=== PATIENT | male | born 1965 | race Caucasian/White ===

== ENCOUNTER 2017-11-03 17:54 | Inpatient (IN) | payer OTHER, MEDICAID ==
[~2017-11-03] VITALS: Ht 182.9 cm; Wt 134.7 kg
--- NOTE | ~2017-11-03 | 2DMMODE ---
[facility] [address] [place] [address] 2 D/M-MODE ECHOCARDIOGRAM Name: JOSSIE PARKS Room #: 207-P [facility] IN M.R.#: [id number] Admission: 11/03/17 Attend Phys: Gareth Hernandez Discharge: Date of : 61 Date of Service: 11/06/17 1553 Report #: [id number] THIS REPORT FOR: //name// APPROVED REPORT Study performed: 11/06/2017 13:35:05 EXAM: Comprehensive 2D, Doppler, and color-flow Echocardiogram Patient Location: Bedside Room #: 207 Status: routine BSA: 2.53 HR: 127 bpm BP: 124/98 mmHg Rhythm: Atrial Fibrillation Other Information Study Quality: Fair Technically limited study due to morbid obesity, no mobility. Echo Enhancing Agent Indication: Endocardial border delineation Agent(s) / Amount(s) Used: Optison 7 cc 2D Dimensions RVDd: 35.04 mm LVEF(%): 28.41 (>50%) IVSd: 13.24 (7-11mm) LVOT Diam: 24.10 (18-24mm) LVDd: 59.82 mm PWd: 13.07 (7-11mm) Ascending Ao: 39.62 (22-36mm) LVDs: 51.73 (25-40mm) Aortic Root: 40.45 mm Villar's LVEF: 28.41 % Volumes Left Atrial Volume (Systole) Single Plane 4CH: 83.79 mL Single Plane 2CH: 82.56 mL LA ESV Index: 35.00 mL/m2 Aortic Valve AoV Peak Austin.: 1.21 m/s AO Peak Gr.: 8.45 mmHg LVOT Max P.66 mmHg LVOT Max V: 0.63 m/s JACKELIN Vmax: 2.37 cm2 Mitral Valve [facility] [place] [address] 2 D/M-MODE ECHOCARDIOGRAM Name: JOSSIE PARKS Room #: 207-P [facility] IN M.R.#: [id number] Admission: 11/03/17 Attend Phys: Gareth Hernandez Discharge: Date of : 61 Date of Service: 11/06/17 1553 Report #: [id number] MV Decel. Time: 150.70 ms MV E Max Austin.: 0.56 m/s Pulmonary Valve PV Peak Austin.: 1.14 m/s PV Peak Gr.: 6.06 mmHg Tricuspid Valve TR Peak Austin.: 1.91 m/s TR Peak Gr.: 14.66 mmHg Left Ventricle Left ventricle is dilated. Regional wall motion abnormalities cannot be excluded. Mild concentric left ventricular hypertrophy. Left ventricular systolic function is moderately decreased. LVEF 35-40%. This study is not technically sufficient to allow evaluation of the LV diastolic function due to atrial fibrillation. Right Ventricle Right ventricle is not well visualized but appears normal in size. Atria Left atrium is dilated. Aortic Valve Aortic valve is grossly normal in structure. No aortic regurgitation. There is no aortic valvular stenosis. Mitral Valve The mitral valve is normal in structure. Trace mitral regurgitation. Tricuspid Valve The tricuspid valve is normal in structure. Trace tricuspid regurgitation. Estimated PAP is 15mmHg plus the right atrial pressure. Pulmonic Valve Pulmonic valve is not well visualized. Great Vessels Aortic root is borderline dilated. The ascending aorta is mildly dilated. IVC is not well visualized. Pericardium There is no pericardial effusion. [facility] [place] [address] 2 D/M-MODE ECHOCARDIOGRAM Name: JOSSIE PARKS Room #: 207-P [facility] IN M.R.#: [id number] Admission: 11/03/17 Attend Phys: Gareth Hernandez Discharge: Date of : 61 Date of Service: 11/06/171552 Report #: [id number] <Conclusion> Technically very limited study Left ventricular systolic function is moderately decreased. LVEF 35-40%. Left atrium is dilated. Aortic valve is grossly normal in structure. No aortic valvular stenosis or insufficiency. The mitral valve is normal in structure. Trace mitral regurgitation. Pulmonary artery pressure could not be reliably ascertained There is no pericardial effusion. <ELECTRONICALLY SIGNED> By: Marciano Brooke MD, [facility] 11/06/17 155 52 155 Mraciano Brooke MD, FACC /INF
--- NOTE | ~2017-11-03 | EKG ---
[address] [address] ELECTROCARDIOGRAM REPORT Name: JOSSIE PARKS Room #: 207-P ADM IN M.R.#: [id number] Admission: 11/03/17 Attend Phys: Gareth Frances Discharge: Date of : 61 Report #: [id number] THIS REPORT FOR: //name// [facility] Test Date: 2017-11-06 Test Time: 12:20:19 Pat Name: JOSSIE PARKS Department: Room: 207 P Gender: M Aromatherapist: Bethanie FIGUEROA : 1965 Requested By: Corey Powell Order Number: [id number] MD: Corey Powell Measurements Intervals [place] Rate: 118 P: IN: QRS: 37 QRSD: 96 T: 73 QT: 356 QTc: 499 Interpretive Statements Atrial fibrillation Anteroseptal infarct, age indeterminate Compared to ECG 11/05/2017 15:27:32 No significant changes Electronically Signed On 11-06-2017 13:18:16 GEOGRAPHY INSTRUCTOR by Corey Powell [email or web address] <ELECTRONICALLY SIGNED> By: Corey Powell MD 11/06/17 1318 1220 1220 Corey Powell MD /KOBE
--- NOTE | ~2017-11-03 | EKG ---
[address] [address] ELECTROCARDIOGRAM REPORT Name: JOSSIE PARKS Room #: 429-P ADM IN M.R.#: [id number] Admission: 11/03/17 Attend Phys: Gareth Frances Discharge: Date of : 61 Report #: [id number] THIS REPORT FOR: //name// [facility] Test Date: 2017-11-03 Test Time: 18:06:56 Pat Name: JOSSIE PARKS Department: Room: 429 Gender: M Branch Banker: DONNA : 1965 Requested By: Roxie Lane Order Number: [id number] MD: Corey Powell Measurements Intervals [place] Rate: 134 P: 38 AK: 122 QRS: -6 QRSD: 88 T: QT: 311 QTc: 465 Interpretive Statements Sinus tachycardia Nonspecific T abnormalities, lateral leads Compared to ECG 10/27/2016 13:59:50 Sinus rhythm no longer present Intraventricular conduction delay no longer present Myocardial infarct finding no longer present Possible ischemia no longer present T-wave abnormality still present Electronically Signed On 11-04-2017 8:27:29 ALCOHOLISM WORKER by Corey Powell [email or web address] <ELECTRONICALLY SIGNED> By: Corey Powell MD 11/04/17 0827 180 180 Corey Powell MD /EPI
--- NOTE | ~2017-11-03 | EKG ---
[address] [address] ELECTROCARDIOGRAM REPORT Name: JOSSIE PARKS Room #: 207-P ADM IN M.R.#: [id number] Admission: 11/03/17 Attend Phys: Gareth Frances Discharge: Date of : 61 Report #: [id number] THIS REPORT FOR: //name// [facility] Test Date: 2017-11-08 Test Time: 11:25:11 Pat Name: JOSSIE PARKS Department: Room: 207 P Gender: M Staple Laster: Bethanie FIGUEROA : 1965 Requested By: Corey Powell Order Number: [id number] MD: Corey Powell Measurements Intervals [place] Rate: 125 P: MA: QRS: -9 QRSD: 100 T: QT: 345 QTc: 498 Interpretive Statements Atrial fibrillation Nonspecific T abnormalities, lateral leads Compared to ECG 11/06/2017 12:20:19 T-wave abnormality now present Myocardial infarct finding no longer present Electronically Signed On 11-08-2017 11:42:54 SUPPLY CHAIN PROCUREMENT MANAGER by Corey Powell [email or web address] <ELECTRONICALLY SIGNED> By: Corey Powell MD 11/08/17 1142 1125 1125 Corey Powell MD /KOBE
--- NOTE | ~2017-11-03 | EKG ---
[address] [address] ELECTROCARDIOGRAM REPORT Name: JOSSIE PARKS Room #: 207-P ADM IN M.R.#: [id number] Admission: 11/03/17 Attend Phys: Gareth Frances Discharge: Date of : 61 Report #: [id number] THIS REPORT FOR: //name// [facility] Test Date: 2017-11-05 Test Time: 15:27:32 Pat Name: JOSSIE PARKS Department: Room: 207 Gender: M [employer] District Supervisor: savannah : 1965 Requested By: Corey Powell Order Number: [id number] MD: Corey Powell Measurements Intervals [place] Rate: 157 P: [place]: QRS: -4 QRSD: 92 T: 49 QT: 302 QTc: 489 Interpretive Statements Atrial fibrillation Anterior infarct, old Compared to ECG 11/03/2017 18:06:56 Myocardial infarct finding now present Sinus tachycardia no longer present T-wave abnormality no longer present Electronically Signed On 11-05-2017 15:59:18 LAWN MOWER OPERATOR by Corey Powell [email or web address] <ELECTRONICALLY SIGNED> By: Corey Powell MD 11/05/17 1559 1527 1527 Corey Powell MD /KOBE
--- NOTE | ~2017-11-03 | HC ---
[facility] [place] [address] CONSULTATION Name: JOSSIE PARKS Room #: 207-P [facility] IN M.R.#: [id number] Admission: 11/03/17 Attend Phys: Gareth Frances Discharge: Date of : 61 Report #: [id number] THIS REPORT FOR: //name// CC: Billy Frances REASON FOR CONSULTATION: New onset AFib. HISTORY OF PRESENT ILLNESS: The patient is a 52-year-old male admitted recently with increased fatigue, weakness and low oxygen saturations. He has a history of hypertension, diabetes, prior CVA with left-sided hemiparesis, bipolar disorder, hyperlipidemia and prior alcohol abuse. He resides at the [facility] due to his multiple health issues. Today at around 1 p.m., he went into atrial fibrillation with rapid ventricular response with rates in the 170s. REVIEW OF SYSTEMS: Unable to obtain due to altered mental status and decreased mentation, which is probably a chronic issue. He does have some family members in the room with him. PAST MEDICAL HISTORY: As above. SOCIAL HISTORY: Lives in a group home. FAMILY HISTORY: Noncontributory. ALLERGIES: INCLUDE CIPRO. MEDICATIONS: Include vancomycin, Tamiflu, insulin, gabapentin, Lovenox, atorvastatin, Coreg 12.5 b.i.d., levofloxacin, insulin, sennosides, multivitamin, gabapentin, folic acid, Plavix, citalopram, insulin, Depakote p.o. q. 8, oxycodone, Zofran. PHYSICAL EXAMINATION: VITAL SIGNS: Temperature is 37.2, pulse 102, respiration 20, blood pressure 133/93, sats 95%. GENERAL: He is in no acute distress. HEENT: Oropharynx is clear. NECK: Supple, with no thyromegaly. HEART: Tachycardic. No murmurs are noted. He does not have elevated jugular venous pressures. LUNGS: Clear to auscultation bilaterally. ABDOMEN: Soft, nontender, nondistended, no hepatosplenomegaly. EXTREMITIES: There is no clubbing, cyanosis or edema. NEUROLOGIC: Cranial nerves 2-12 are grossly intact. LABORATORY DATA: White count 15, hemoglobin 12, platelets 163. Coags: [address] [address] CONSULTATION Name: KASEYJOSSIE Dora Room #: 207-P [facility] IN M.R.#: [id number] Admission: 11/03/17 Attend Phys: Gareth Frances Discharge: Date of : 61 Report #: [id number] 1.2. Chemistry: Sodium 146, potassium 3.9, chloride 111, bicarbonate 28, BUN 18, creatinine 0.8. Troponin is pending. DIAGNSOSTIC STUDIES: His 12-lead EKG earlier in the hospitalization on the showed what appears to be sinus tachycardia at 134 beats per minute. His telemetry shows that he went into atrial fibrillation at around [address] of the head shows some old prior strokes. Chest x-ray is poor quality, so unclear if there is any infiltrates here. ASSESSMENT: 1. Atrial fibrillation with rapid ventricular response. 2. Hypertension. 3. Diabetes. 4. Prior cerebrovascular accident. 5. Bipolar. 6. Hyperlipidemia. 7. Prior alcohol abuse. PLAN: In summary, the patient is a 52-year-old with new onset AFib. We will transfer to CCU and start on IV amiodarone and give IV digoxin as well for rate control. We can continue with his carvedilol. We will obtain an echo in the morning. <ELECTRONICALLY SIGNED> By: Corey Powell MD 11/06/17 1307 1527 0206 Corey Powell MD /nt
--- NOTE | ~2017-11-03 | HC ---
[facility] [place] [address] CONSULTATION Name: KASEYNATO Dora Room #: 429-P [facility] IN M.R.#: [id number] Admission: 11/03/17 Attend Phys: Gareth Frances Discharge: Date of : 61 Report #: [id number] THIS REPORT FOR: //name// CC: Billy Frances DATE OF SERVICE: 11/04/2017 CONSULTATION: Infectious Diseases. HISTORY OF PRESENT ILLNESS: Mr Nato Junior is a 52-year-old white male admitted to the hospital on 11/03 with an influenza-like illness, associated with right-sided weakness and hyperglycemia. The patient had been treated for influenza-like illness at his shelter with azithromycin for unknown number of days. Ambulance was called, when he was noted to have new right-sided weakness. In the ambulance, he had an oxygen saturation of 80%. When he reached the ER, he was noted to have a fever of 101.2 axillary and glucose of 443. In this setting the patient was admitted to the hospital. Infectious Disease consultation was requested. PAST MEDICAL HISTORY: Significant for diabetes with hypertension, stroke which results in patient requiring [facility] care. He has a left hemiparesis and expressive aphasia. He has a history of bipolar illness, alcohol overuse. ALLERGIES: The chart notes ALLERGY TO CIPRO, although he is tolerating Levaquin so far with no adverse effects. MEDICATION RECONCILIATION: Current medications include insulin, gabapentin, atorvastatin, enoxaparin, carvedilol, levofloxacin, folic acid, sennosides, citalopram, clopidogrel, divalproex, oxycodone p.r.n., glucagon p.r.n. glucose tabs p.r.n., Tylenol p.r.n., Zofran p.r.n., vancomycin 1 dose. FAMILY HISTORY: Noncontributory. SOCIAL HISTORY: According to the chart, patient is . In the facility, he has no exposure to alcohol or drugs. I believe he was a heavy smoker in the past. REVIEW OF SYSTEMS: Limited as the patient has expressive aphasia. However, he will answer yes, no on occasion. He describes some abdominal discomfort. He denies having respiratory symptoms. I could not appreciate whether he is able to complain of any new neurological complaints. PHYSICAL EXAMINATION: GENERAL: The patient appears older than his stated age, disheveled, but comfortable, not in any distress. [address] [address] CONSULTATION Name: NATO PARKS Dora Room #: 429-P [facility] IN M.R.#: [id number] Admission: 11/03/17 Attend Phys: Gareth Frances Discharge: Date of : 61 Report #: [id number] VITAL SIGNS: Showed temperature was 101.2 axillary in the ER, but it is only 100.5 today and often was measured at normal. SKIN: Sallow without rash, lesion, wounds nor exanthem. ENT: Negative. HEART: Sounds normal. LUNGS: Clear. ABDOMEN: Belly obese, soft, not tender. Bowel sounds present. EXTREMITIES: The patient is weak all around, his left side appears to be almost hemiplegic. He has a weak grasp on the right. He does follow commands and does attempt to answer some questions. LABORATORY DATA: White count is 18.4; hemoglobin 12.8; platelet 192,000. Electrolytes, BUN and creatinine are normal, glucose is 374. TSH is normal. Lactate is normal. Liver function tests are slightly elevated and better than they were yesterday. The influenza antigen is negative for type A and type B, blood cultures x 2 are negative. The urinalysis shows no white cells. Chest x-ray is clear. CT scan shows old changes, but no acute infarcts nor infection. ASSESSMENT AND PLAN: In summary, a patient with a influenza-like illness with new neurological symptoms, hypoxia, hyperglycemia, and fever with leukocytosis. Levaquin would offer broad-spectrum coverage and is reasonable. I think I would like to add Tamiflu in case this is influenza. We can use a respiratory viral panel, which may be more sensitive than the influenza antigen panel. I want to do serial studies of his CBC, the chest x-ray and his glucose. I would anticipate these will all normalize with time and therapy. I appreciate the opportunity of input in the care of the patient. Thank you for requesting infectious disease consultation. <ELECTRONICALLY SIGNED> By: Kunal Castro MD 11/05/17 1345 1759 0502 Kunal Castro MD /nt
[~2017-11-03 17:54] MED LIST: ASPIR 8181 MG PO; BIOFREEZE118 ML TP; COREG6.25 MG PO; DEPAKOTE 250MG250 M1 PO; DEPAKOTE ER500 MG PO; FOLIC ACID1 MG PO; GABAPENTIN 100100 MG PO; HUMALOG100 UNIT/2 SQ; LANTUS SUBQ; LEXAPRO20 MG PO; LIPITOR 20 MG T20 M1 PO; MULTIVITAMINS1 EAC7 PO; NEURONTIN 300300 M1 PO; PERCOCET PO; PLAVIX 75 MG TA75 M1 PO; SENNA8.6 MG PO; TYLENOL325 MG PO; VITAMIN B-1100 M1 PO
[2017-11-03 17:56] VITALS: BP 124/78
[2017-11-03 18:49] LABS: ABSOLUTE NEUTROPHILS 13.9 thou/uL (1.4-8.2); BASOPHILS 0.5 % (0.0-2.0); EOSINOPHILS 0.1 % (0.0-3.0); HEMATOCRIT 42.2 % (42.0-52.0); HEMOGLOBIN 14.2 gm/dL (14.0-18.0); LYMPHOCYTES 16.4 % (24.0-44.0); MCH 28.5 pg (26.0-34.0); MCHC 33.7 g/dL (28.0-37.0); MCV 84.6 fL (80.0-100.0); MONOCYTES 6.4 % (1.0-8.0); PLATELET COUNT 212 thou/uL (150-400); POLYS 76.6 % (36.0-66.0); RBC 4.99 mil/uL (4.50-6.00); RDW 14.2 % (10.5-14.5); WBC 18.2 thou/uL (4.0-11.0)
[2017-11-03 18:50] LABS: ANION GAP 10 mmol/L (7-16); BUN 25 mg/dL (7-18); CALCIUM 8.9 mg/dL (8.5-10.1); CHLORIDE 109 mmol/L (98-107); CO2 28 mmol/L (21-32); GLUCOSE 364 mg/dL (74-106); POTASSIUM 4.4 mmol/L (3.5-5.1); SODIUM 147 mmol/L (136-145)
[2017-11-03 18:58] LABS: ALBUMIN 3.1 g/dL (3.4-5.0); DIRECT BILIRUBIN < 0.1 mg/dL (<0.1-0.3); LIPASE 159 U/L (73-393); SGOT 44 U/L (15-37); SGPT 135 U/L (30-65); TOTAL BILIRUBIN 0.5 mg/dL (<0.1-1.0); TOTAL PROTEIN 7.4 g/dL (6.4-8.2)
[2017-11-03 19:13] LABS: INR 1.2; PROTIME 12.3 Seconds (9.3-11.4)
[2017-11-03] MEDS ORDERED: LEXAPRO20 MG PO (19:20)
[2017-11-03 20:40] LABS: URINE BILIRUBIN NEGATIVE (Negative); URINE BLOOD NEGATIVE (Negative); URINE CLARITY CLEAR; URINE COLOR YELLOW; URINE GLUCOSE-RANDOM* 3+ (Negative); URINE KETONES TRACE (Negative); URINE LEUKOCYTES-REFLEX NEGATIVE (Negative); URINE NITRITE-REFLEX NEGATIVE (Negative); URINE PROTEIN (DIPSTICK) 1+ (Negative); URINE SPECIFIC GRAVITY 1.025 (1.005-1.035)
[2017-11-03 20:50] LABS: CASTS None Seen /LPF (None Seen); CRYSTALS None Seen /LPF (None Seen); SQUAMOUS None Seen /LPF (0-3); URINE RBC None Seen /HPF (0-2)
[2017-11-03 20:51] LABS: URINE WBC-REFLEX None Seen /HPF (0-5)
[2017-11-03 22:16] VITALS: BP 158/104
[2017-11-03 22:45] VITALS: BP 145/96
[2017-11-04] MEDS ORDERED: DEPAKOTE ER500 MG PO (00:54)
[2017-11-04 04:30] VITALS: BP 126/75; BP 95/62
[2017-11-04 06:13] LABS: HEMATOCRIT 39.2 % (42.0-52.0); HEMOGLOBIN 12.8 gm/dL (14.0-18.0); MCHC 32.5 g/dL (28.0-37.0); RBC 4.56 mil/uL (4.50-6.00); RDW 14.6 % (10.5-14.5); WBC 18.4 thou/uL (4.0-11.0)
[2017-11-04 06:28] LABS: ALBUMIN 2.9 g/dL (3.4-5.0); CALCIUM 8.7 mg/dL (8.5-10.1); CREATININE 0.9 mg/dL (0.7-1.3); POTASSIUM 4.1 mmol/L (3.5-5.1); TOTAL BILIRUBIN 0.7 mg/dL (<0.1-1.0); TOTAL PROTEIN 6.6 g/dL (6.4-8.2)
[2017-11-04 07:44] VITALS: BP 131/98
[2017-11-04 17:00] VITALS: BP 126/83
[2017-11-04 18:36] LABS: ABSOLUTE NEUTROPHILS 12.5 thou/uL (1.4-8.2); BASOPHILS 0.5 % (0.0-2.0); EOSINOPHILS 0.2 % (0.0-3.0); HEMOGLOBIN 12.2 gm/dL (14.0-18.0); LYMPHOCYTES 12.8 % (24.0-44.0); MCH 28.2 pg (26.0-34.0); MCHC 32.9 g/dL (28.0-37.0); MCV 85.6 fL (80.0-100.0); MONOCYTES 5.5 % (1.0-8.0); PLATELET COUNT 163 thou/uL (150-400); RBC 4.32 mil/uL (4.50-6.00); RDW 14.6 % (10.5-14.5); WBC 15.4 thou/uL (4.0-11.0)
[2017-11-04 19:37] VITALS: BP 138/90
[2017-11-05 05:25] VITALS: BP 128/85
[2017-11-05 06:24] LABS: CALCIUM 8.7 mg/dL (8.5-10.1); CREATININE 0.8 mg/dL (0.7-1.3); POTASSIUM 3.9 mmol/L (3.5-5.1)
[2017-11-05 08:00] VITALS: BP 133/93
[2017-11-05 20:36] VITALS: BP 142/90
[2017-11-05 23:50] VITALS: BP 117/86
[2017-11-06 04:58] VITALS: BP 148/86
[2017-11-06 07:00] LABS: ABSOLUTE NEUTROPHILS 9.3 thou/uL (1.4-8.2); BASOPHILS 0.4 % (0.0-2.0); EOSINOPHILS 0.4 % (0.0-3.0); HEMATOCRIT 32.5 % (42.0-52.0); HEMOGLOBIN 10.6 gm/dL (14.0-18.0); LYMPHOCYTES 10.5 % (24.0-44.0); MCH 28.2 pg (26.0-34.0); MCHC 32.6 g/dL (28.0-37.0); MCV 86.4 fL (80.0-100.0); MONOCYTES 4.3 % (1.0-8.0); PLATELET COUNT 145 thou/uL (150-400); POLYS 84.4 % (36.0-66.0); RBC 3.76 mil/uL (4.50-6.00); RDW 14.2 % (10.5-14.5)
[2017-11-06 07:11] LABS: ALBUMIN 2.2 g/dL (3.4-5.0); CALCIUM 7.3 mg/dL (8.5-10.1); CREATININE 0.5 mg/dL (0.7-1.3); PHOSPHORUS 2.7 mg/dL (2.5-4.9); POTASSIUM 3.5 mmol/L (3.5-5.1)
[2017-11-06 07:45] VITALS: BP 124/98
[2017-11-06 10:57] VITALS: BP 132/79
[2017-11-06 19:55] VITALS: BP 129/97
[2017-11-07 04:13] VITALS: BP 143/96
[2017-11-07 08:39] VITALS: BP 153/104
[2017-11-07 12:24] VITALS: BP 141/90
[2017-11-07 15:42] VITALS: BP 142/78
[2017-11-07 20:30] VITALS: BP 150/77
[2017-11-08 00:15] VITALS: BP 140/77
[2017-11-08 04:30] VITALS: BP 153/72
[2017-11-08 08:03] VITALS: BP 130/86
[2017-11-08 12:59] VITALS: BP 147/103
[2017-11-08 16:27] VITALS: BP 133/56
[2017-11-08 21:08] VITALS: BP 101/65
[2017-11-09 00:09] LABS: ADENOVIRUS Negative (Negative); INFLUENZA A Negative (Negative); INFLUENZA B Negative (Negative); METAPNEUMOVIRUS Negative (Negative); PARAINFLUENZA 1 Negative (Negative); PARAINFLUENZA 2 Negative (Negative); PARAINFLUENZA 3 Negative (Negative); RHINOVIRUS Negative (Negative); RSV A Negative (Negative); RSV B Negative (Negative)
[2017-11-09 04:15] VITALS: BP 132/85
[2017-11-09 06:34] LABS: HEMATOCRIT 35.9 % (42.0-52.0); MCH 28.4 pg (26.0-34.0); MCHC 33.4 g/dL (28.0-37.0); RBC 4.23 mil/uL (4.50-6.00); RDW 14.4 % (10.5-14.5); WBC 11.7 thou/uL (4.0-11.0)
[2017-11-09 06:37] LABS: ALBUMIN 2.5 g/dL (3.4-5.0); CALCIUM 8.2 mg/dL (8.5-10.1); CREATININE 0.7 mg/dL (0.7-1.3); POTASSIUM 3.4 mmol/L (3.5-5.1)
[2017-11-09] MEDS ORDERED: ELIQUIS5 MG PO ×2 (08:07→08:12)
[2017-11-09] MEDS ORDERED: PACERONE 200 M200 M1 PO (08:08)
[2017-11-09] MEDS ORDERED: DIGOXIN250 MCG PO (08:08)
[2017-11-09] MEDS ORDERED: BENAZEPRIL HCL5 MG PO (08:09)
[2017-11-09] MEDS ORDERED: CARDIZEM CD120 MG PO (08:09)
[2017-11-09] MEDS ORDERED: CARVEDILOL25 MG PO (08:09)
[2017-11-09 09:25] VITALS: BP 145/83
[2017-11-09 10:20] VITALS: BP 145/83
== END 2017-11-09 11:00 | DRG 177 ==
LOC: ER 17:54 → EROBS 21:47 → 4E 21:47 → 2N 11-05 15:39
PROVIDERS: Emergency Medicine; Hospitalist; Internal Medicine Infectious Disease; Nurse Practitioner Family
PROC: 02HV33Z Insertion of Infusion Device into Superior Vena Cava, Percutaneous Approach (ICD-10-PCS; principal; 2017-11-07)
DX: J69.0 Pneumonitis due to inhalation of food and vomit (principal); I26.99 Other pulmonary embolism without acute cor pulmonale; E43 Unspecified severe protein-calorie malnutrition; I42.9 Cardiomyopathy, unspecified; I69.954 Hemiplegia and hemiparesis following unspecified cerebrovascular disease affecting left non-dominant side; G89.29 Other chronic pain; E11.9 Type 2 diabetes mellitus without complications; D72.829 Elevated white blood cell count, unspecified; I10 Essential (primary) hypertension; R00.0 Tachycardia, unspecified; I48.91 Unspecified atrial fibrillation; R13.10 Dysphagia, unspecified; E78.5 Hyperlipidemia, unspecified; Z79.899 Other long term (current) drug therapy; Z86.718 Personal history of other venous thrombosis and embolism; Z86.73 Personal history of transient ischemic attack (TIA), and cerebral infarction without residual deficits; Z88.1 Allergy status to other antibiotic agents; Z86.711 Personal history of pulmonary embolism; Z79.01 Long term (current) use of anticoagulants
CPT/HCPCS: 10081; 10183; 27000